=== PATIENT | male | born 1940 | race Caucasian/White ===

== ENCOUNTER 2022-01-01 10:40 | Outpatient (CLI) | payer MEDICARE | END 2022-01-01 10:41 | disposition home or self-care (01) | LOC: MRI 10:40 | PROVIDERS: ATTEND Family Medicine | DX: M54.16 Radiculopathy, lumbar region (principal); M48.061 Spinal stenosis, lumbar region without neurogenic claudication; M48.07 Spinal stenosis, lumbosacral region | CPT/HCPCS: 72148 ==

== ENCOUNTER 2022-01-20 10:40 | Outpatient (CLI) | payer MEDICARE ==
[2022-01-20 12:32] LABS: Hemoglobin 11.6 g/dL (13.5-17.5); Mean Corpuscular HGB CONC 33.7 g/dL (32.0-36.0); Mean Corpuscular Hemoglobin 31.4 pg (27.0-33.0); Mean Corpuscular Volume 93.2 fl (81.2-95.1); Mean Platelet Volume 9.9 fl (7.4-10.4); Platelet Count 314 10x3/uL (150-450); RBC Distribution Width 14.2 % (11.5-14.5); Red Blood Cell (RBC) Count 3.69 10x6/uL (4.32-5.72); White Blood Cell (WBC) Count 12.3 10x3/uL (3.5-10.5)
[2022-01-20 12:46] LABS: Anion Gap 18 mmol/L (10-20); BUN (Urea Nitrogen) 42 mg/dL (8.4-25.7); Calc. Creatinine Clearance 0 mL/min (70-130); Calcium 9.7 mg/dL (7.8-10.44); Carbon Dioxide 21 mmol/L (23-31); Chloride 100 mmol/L (98-107); Estimated GFR 27; Glucose 95 mg/dL (83-110); Potassium 4.8 mmol/L (3.5-5.1); Sodium 134 mmol/L (136-145)
== END 2022-01-20 10:41 | disposition home or self-care (01) ==
LOC: LABBT 10:40
PROVIDERS: ATTEND Neurological Surgery
DX: Z01.818 Encounter for other preprocedural examination (principal); Z20.822 Contact with and (suspected) exposure to COVID-19
CPT/HCPCS: 80048; 85027; 87811; 93005; 93010

== ENCOUNTER 2022-02-17 13:13 | Outpatient (CLI) | payer MEDICARE | END 2022-02-17 13:14 | disposition home or self-care (01) | LOC: TBSIIMAG 13:13 | PROVIDERS: ATTEND Neurological Surgery | DX: M43.16 Spondylolisthesis, lumbar region (principal); M45.6 Ankylosing spondylitis lumbar region; Z98.890 Other specified postprocedural states | CPT/HCPCS: 72100 ==

== ENCOUNTER 2022-04-19 11:06 | Outpatient (CLI) | payer MEDICARE | END 2022-04-19 11:07 | disposition home or self-care (01) | LOC: TBSIIMAG 11:06 | PROVIDERS: ATTEND Neurological Surgery | DX: M47.26 Other spondylosis with radiculopathy, lumbar region (principal); M47.27 Other spondylosis with radiculopathy, lumbosacral region; Z98.890 Other specified postprocedural states | CPT/HCPCS: 72100 ==

== ENCOUNTER 2023-03-14 19:47 | Inpatient (IN) | payer MEDICARE ==
[2023-03-14 21:35] LABS: #Basophils 0.1 thou/uL (0.0-0.2); #Eosinphils 0.1 thou/uL (0.0-0.7); #Monocytes 0.4 thou/uL (0.11-0.59); #Neutrophils 10.7 thou/uL (1.40-6.50); %Basophils 0.5 % (0.0-1.0); %Eosinophils 1.1 % (0.0-10.0); %Lymphocytes 7.3 % (21.0-51.0); %Monocytes 2.9 % (0.0-10.0); %Neutrophils 87.4 % (42.0-75.0); Hematocrit 41.2 % (42.0-52.0); Hemoglobin 13.8 g/dL (14.0-18.0); Mean Corpuscular HGB CONC 33.5 g/dL (32.0-36.0); Mean Corpuscular Hemoglobin 31.4 pg (27.0-31.0); Mean Corpuscular Volume 93.8 fl (78.0-98.0); Mean Platelet Volume 9.6 fL (7.4-10.4); Platelet Count 316 10x3/uL (130-400); RBC Distribution Width 15.1 % (11.5-14.5); Red Blood Cell (RBC) Count 4.39 mill/uL (4.70-6.10); White Blood Cell (WBC) Count 12.2 10x3/uL (4.8-10.8)
[2023-03-14 22:03] LABS: ALT (SGPT) 16 U/L (8-55); AST (SGOT) 20 U/L (5-34); Albumin 4.4 g/dL (3.4-4.8); Alkaline Phosphatase 178 U/L (40-110); Anion Gap 17 mmol/L (10-20); BUN (Urea Nitrogen) 32 mg/dL (8.4-25.7); Bilirubin, Total 0.4 mg/dL (0.2-1.2); Calc. Creatinine Clearance 0 mL/min (70-130); Calcium 9.8 mg/dL (7.8-10.44); Carbon Dioxide 21 mmol/L (23-31); Chloride 100 mmol/L (98-107); Estimated GFR 31; Globulin 4.2 g/dL (2.4-3.5); Glucose 111 mg/dL (83-110); Potassium 4.6 mmol/L (3.5-5.1); Protein, Total 8.6 g/dL (5.8-8.1); Sodium 133 mmol/L (136-145)
[2023-03-14] MEDS ORDERED: Ondansetron PF 4 MG/2 ML Vial IVP PRN (22:12)
[2023-03-14] MEDS ORDERED: Labetalol HCl 100 MG/20 ML VIAL SLOW IVP PRN (22:18)
[2023-03-14] MEDS ORDERED: diphenhydrAMINE 50 MG/ML VIAL IVP PRN (22:45)
[2023-03-15 00:33] VITALS: BMI 29.8
[2023-03-15] MEDS: Thiamine HCl 200 MG/2 ML VIAL SLOW IVP SCH ×2 (01:14→22:36)
[2023-03-15] MEDS ORDERED: Metoprolol Tartrate 5 MG/5 ML VIAL IVP SCH (03:00)
[2023-03-15 06:33] LABS: #Monocytes 0.1 thou/uL (0.11-0.59); #Neutrophils 9.2 thou/uL (1.40-6.50); %Basophils 0.1 % (0.0-1.0); %Lymphocytes 10.3 % (21.0-51.0); %Monocytes 0.9 % (0.0-10.0); %Neutrophils 87.7 % (42.0-75.0); Hematocrit 40.6 % (42.0-52.0); Hemoglobin 13.8 g/dL (14.0-18.0); Mean Corpuscular Hemoglobin 31.5 pg (27.0-31.0); Mean Corpuscular Volume 92.7 fl (78.0-98.0); Mean Platelet Volume 9.8 fL (7.4-10.4); Platelet Count 318 10x3/uL (130-400); RBC Distribution Width 14.7 % (11.5-14.5); Red Blood Cell (RBC) Count 4.38 mill/uL (4.70-6.10); White Blood Cell (WBC) Count 10.5 10x3/uL (4.8-10.8)
[2023-03-15 06:54] VITALS: BP 166/106
[2023-03-15 07:24] LABS: Anion Gap 18 mmol/L (10-20); BUN (Urea Nitrogen) 36 mg/dL (8.4-25.7); Calc. Creatinine Clearance 34 mL/min (70-130); Calcium 10.1 mg/dL (7.8-10.44); Carbon Dioxide 18 mmol/L (23-31); Chloride 102 mmol/L (98-107); Estimated GFR 32; Glucose 174 mg/dL (83-110); Magnesium 1.8 mg/dL (1.6-2.6); Potassium 4.2 mmol/L (3.5-5.1); Sodium 134 mmol/L (136-145)
[2023-03-15] MEDS: Famotidine/PF 20 mg/2ml Vial SLOW IVP SCH (08:21)
[2023-03-15] MEDS: methylPREDNISolone Sod Succ 40 MG VIAL IVP SCH ×2 (08:21→20:26)
[2023-03-15] MEDS: cloNIDine 0.1 MG TAB PO SCH (09:03)
[2023-03-15] MEDS: Metoprolol Tartrate 50 MG TAB PO SCH (20:26)
[2023-03-15] MEDS: Apixaban 2.5 MG TAB PO SCH (20:26)
[2023-03-16 06:29] LABS: #Eosinphils 0.1 thou/uL (0.0-0.7); #Monocytes 0.7 thou/uL (0.11-0.59); #Neutrophils 21.7 thou/uL (1.40-6.50); %Basophils 0.2 % (0.0-1.0); %Eosinophils 0.2 % (0.0-10.0); %Lymphocytes 8.3 % (21.0-51.0); %Monocytes 2.9 % (0.0-10.0); %Neutrophils 87.7 % (42.0-75.0); Hematocrit 42.1 % (42.0-52.0); Hemoglobin 14.2 g/dL (14.0-18.0); Mean Corpuscular HGB CONC 33.7 g/dL (32.0-36.0); Mean Corpuscular Hemoglobin 30.9 pg (27.0-31.0); Mean Corpuscular Volume 91.5 fl (78.0-98.0); Mean Platelet Volume 9.3 fL (7.4-10.4); Platelet Count 304 10x3/uL (130-400); RBC Distribution Width 14.9 % (11.5-14.5); White Blood Cell (WBC) Count 24.8 10x3/uL (4.8-10.8)
[2023-03-16 06:57] LABS: Anion Gap 17 mmol/L (10-20); BUN (Urea Nitrogen) 37 mg/dL (8.4-25.7); Calc. Creatinine Clearance 33 mL/min (70-130); Calcium 10.1 mg/dL (7.8-10.44); Carbon Dioxide 19 mmol/L (23-31); Chloride 100 mmol/L (98-107); Estimated GFR 31; Glucose 147 mg/dL (83-110); Potassium 4.5 mmol/L (3.5-5.1); Sodium 131 mmol/L (136-145)
[2023-03-16] MEDS: cloNIDine 0.1 MG TAB PO SCH (08:49)
[2023-03-16] MEDS: Metoprolol Tartrate 50 MG TAB PO SCH (08:49)
[2023-03-16] MEDS: Famotidine/PF 20 mg/2ml Vial SLOW IVP SCH (08:49)
[2023-03-16] MEDS: Apixaban 2.5 MG TAB PO SCH (08:49)
[2023-03-16] MEDS: methylPREDNISolone Sod Succ 40 MG VIAL IVP SCH (08:50)
[2023-03-16] MEDS ORDERED: Allopurinol 300 MG TAB PO SCH (09:00)
[2023-03-16] MEDS ORDERED: Carvedilol 6.25 MG TAB PO SCH ×2 (11:00→17:00)
[2023-03-16 11:50] VITALS: TEMP 97.1
== END 2023-03-16 13:34 | disposition home or self-care (01) | DRG 916 ==
LOC: ERS 19:47 → IMCU/EMU 22:12
PROVIDERS: ADMIT Internal Medicine; ATTEND Internal Medicine
PROC: 30233L1 Transfusion of Nonautologous Fresh Plasma into Peripheral Vein, Percutaneous Approach (ICD-10-PCS; principal; 2023-03-15)
PROC: 30233K1 Transfusion of Nonautologous Frozen Plasma into Peripheral Vein, Percutaneous Approach (ICD-10-PCS; 2023-03-15)
DX: T78.3XXA Angioneurotic edema, initial encounter (principal); I13.0 Hypertensive heart and chronic kidney disease with heart failure and stage 1 through stage 4 chronic kidney disease, or unspecified chronic kidney disease; I48.20 Chronic atrial fibrillation, unspecified; M10.9 Gout, unspecified; K21.9 Gastro-esophageal reflux disease without esophagitis; I50.9 Heart failure, unspecified; N18.30 Chronic kidney disease, stage 3 unspecified; R13.10 Dysphagia, unspecified; Z90.49 Acquired absence of other specified parts of digestive tract; Z79.01 Long term (current) use of anticoagulants; Z79.899 Other long term (current) drug therapy; Z98.890 Other specified postprocedural states; Z87.891 Personal history of nicotine dependence
CPT/HCPCS: 36415; 36430; 80048; 80053; 83735; 85025; 86850; 86900; 86901; 93005; J1650; J2920; J3411; P9059; S0028

== ENCOUNTER 2024-05-25 10:25 | Outpatient (CLI) | payer MEDICARE | END 2024-05-25 10:26 | disposition home or self-care (01) | LOC: BICMRI 10:25 | PROVIDERS: ATTEND Family Medicine | DX: M47.26 Other spondylosis with radiculopathy, lumbar region (principal); M51.16 Intervertebral disc disorders with radiculopathy, lumbar region; M48.061 Spinal stenosis, lumbar region without neurogenic claudication; M47.817 Spondylosis without myelopathy or radiculopathy, lumbosacral region; M48.07 Spinal stenosis, lumbosacral region; Z98.1 Arthrodesis status; Z98.890 Other specified postprocedural states | CPT/HCPCS: 72148 ==

== ENCOUNTER 2024-07-18 13:35 | Outpatient (CLI) | payer MEDICARE | END 2024-07-18 13:36 | disposition home or self-care (01) | LOC: BICRAD 13:35 | PROVIDERS: ATTEND Family Medicine | DX: R10.9 Unspecified abdominal pain (principal); R05.8 Other specified cough; N20.0 Calculus of kidney; M45.9 Ankylosing spondylitis of unspecified sites in spine | CPT/HCPCS: 71046; 74019 ==